=== PATIENT | male | born 1955 | race Caucasian/White ===

== ENCOUNTER 2016-03-13 11:56 | Outpatient (RCR) | payer BC ==
[~2016-03-13] VITALS: Ht 180.3 cm; Wt 70.8 kg
[~2016-03-13 11:56] MED LIST: OMALIZUMAB 150 MG (XOLAIR) VIAL SC SCH
[2016-03-29] MEDS ORDERED: OMALIZUMAB 150 MG (XOLAIR) VIAL SC SCH (12:45)
[2016-04-10] MEDS ORDERED: OMALIZUMAB 150 MG (XOLAIR) VIAL SC SCH (11:50)
[2016-04-25] MEDS ORDERED: OMALIZUMAB 150 MG (XOLAIR) VIAL SC SCH (16:30)
[2016-05-08] MEDS ORDERED: OMALIZUMAB 150 MG (XOLAIR) VIAL SC SCH (12:00)
[2016-05-24] MEDS ORDERED: OMALIZUMAB 150 MG (XOLAIR) VIAL SC SCH (10:25)
[2016-06-07] MEDS ORDERED: OMALIZUMAB 150 MG (XOLAIR) VIAL SC SCH (12:30)
[2016-06-07 12:45] VITALS: BP 126/74
== END 2016-06-11 | disposition home or self-care (01) ==
LOC: EUOP 11:56
PROVIDERS: ATTEND Family Medicine
DX: J45.40 Moderate persistent asthma, uncomplicated (principal)
CPT/HCPCS: 96372; J2357

== ENCOUNTER 2016-06-07 11:15 | Outpatient (RCR) | payer BC | END 2016-06-23 15:52 | disposition home or self-care (01) | LOC: PT 11:15 | PROVIDERS: ATTEND Family Medicine | DX: S46.212D Strain of muscle, fascia and tendon of other parts of biceps, left arm, subsequent encounter (principal); X50.0XXD Overexertion from strenuous movement or load, subsequent encounter; M25.512 Pain in left shoulder ==

== ENCOUNTER 2016-06-21 15:41 | Outpatient (RCR) | payer BC ==
[~2016-06-21] VITALS: Ht 180.3 cm; Wt 72.6 kg
[~2016-06-21 15:41] MED LIST changes: +ATOR40TA2 PO; +FLUT1DIS4 IH; +LSNP10T PO; +MNTL10T PO; +OMAL150V SC; +[UNRECOGNIZED DRUG - CODE] NS
[2016-07-06] MEDS ORDERED: OMALIZUMAB 150 MG (XOLAIR) VIAL SC SCH (11:45)
[2016-07-19] MEDS ORDERED: OMALIZUMAB 150 MG (XOLAIR) VIAL SC SCH (12:15)
[2016-08-02] MEDS ORDERED: OMALIZUMAB 150 MG (XOLAIR) VIAL SC SCH (11:45)
[2016-08-18] MEDS ORDERED: OMALIZUMAB 150 MG (XOLAIR) VIAL SC SCH (12:05)
[2016-08-31] MEDS ORDERED: OMALIZUMAB 150 MG (XOLAIR) VIAL SC ONE (12:00)
[2016-09-13] MEDS ORDERED: OMALIZUMAB 150 MG (XOLAIR) VIAL SC SCH (08:40)
[2016-09-13 09:09] VITALS: BP 135/90
== END 2016-09-19 | disposition home or self-care (01) ==
LOC: EUOP 07-06 11:46
PROVIDERS: ATTEND Family Medicine
DX: J45.40 Moderate persistent asthma, uncomplicated (principal)
CPT/HCPCS: 96372; J2357